=== PATIENT | male | born 1945 | race Caucasian/White ===

== ENCOUNTER 2017-10-31 12:46 | Emergency (ER) | payer OTHER ==
[~2017-10-31] VITALS: Ht 177.8 cm; Wt 131.5 kg
--- NOTE | 2017-10-31 15:22 | RADIOLOGY REPORT ---
EXAMINATION: CHEST 1 VIEW CLINICAL INFORMATION: Dizziness. Orthostatic hypotension. COMPARISON: None. TECHNIQUE: An AP view of the chest is provided. The view obtained contains only the upper two thirds of the thorax. FINDINGS: The cardiac silhouette is not enlarged. The mediastinal and hilar contours are unremarkable. There are neither pleural effusions nor pneumothoraces. There are no consolidations. The osseous structures are unremarkable. IMPRESSION: Limited examination as stated above. No acute airspace disease demonstrated within the visualized portions of the lungs.
[2017-10-31 15:32] LABS: ABSOLUTE BASOPHIL COUNT 0 /CUMM (0.0-0.2); ABSOLUTE EOSINOPHIL COUNT 0.3 /CUMM (0.0-0.7); ABSOLUTE GRANULOCYTE CT 9.1 /CUMM (1.4-6.5); ABSOLUTE LYMPH COUNT 2.2 /CUMM (1.2-3.4); ABSOLUTE MONOCYTE COUNT 0.6 /CUMM (0.10-0.60); BASOPHIL % 0.2 % (0.0-2.0); EOSINOPHIL % 2.3 % (0-5); GRANULOCYTE % 74.7 % (42.2-75.2); HEMATOCRIT 48.3 % (42-52); MEAN CORPUSCULAR HGB 28.8 PG (27.0-31.0); PLATELET COUNT 296 /CUMM (130-400); RBC DISTRIBUTION WIDTH 14.2 % (11.5-14.5); RED BLOOD CELL CT 5.56 /CUMM (4.70-6.10); WHITE BLOOD CELL COUNT 12.1 /CUMM (4.8-10.8)
[2017-10-31] MEDS ORDERED: LOSARTAN POTASS50 M1 PO (15:32)
[2017-10-31] MEDS ORDERED: PIOGLITAZONE HC15 MG PO (15:32)
[2017-10-31] MEDS ORDERED: BISOPROLOL-HCT1 EAC1 PO (15:32)
[2017-10-31] MEDS ORDERED: TOPIRAMATE50 M1 PO (15:33)
[2017-10-31] MEDS ORDERED: ATORVASTATIN CA40 M1 PO (15:33)
[2017-10-31] MEDS ORDERED: METFORMIN HCL500 M4 PO (15:34)
[2017-10-31] MEDS ORDERED: FINASTERIDE5 M1 PO (15:34)
[2017-10-31] MEDS ORDERED: PAROXETINE HCL20 M1 PO (15:34)
--- NOTE | 2017-10-31 15:56 | ED GENERAL ADULT ---
History of Present Illness General Chief Complaint: General Adult Stated Complaint: FREQUENT URINATION/DIZZY Source: patient Exam Limitations: no limitations Vital Signs & Intake/Output Vital Signs & Intake/Output Vital Signs Date Time Temp Pulse Resp B/P B/P Pulse O2 O2 Flow FiO2 Mean Ox Delivery Rate 10/31 1501 56 130/78 10/31 1304 98.7 64 18 137/82 96 Room Air Allergies Coded Allergies: NO KNOWN ALLERGIES (06/12/13) Reconcile Medications Atorvastatin Calcium 40 MG TABLET 1 TAB PO DAILY CHOLESTEROL (Reported) Bisoprolol Fumarate/Hctz (Bisoprolol-Hctz 5-6.25 MG Tab) 5 MG-6.25 MG TABLET 1 TAB PO DAILY HEART (Reported) Finasteride 5 MG TABLET 1 TAB PO DAILY BPH (Reported) Losartan Potassium 50 MG TABLET 1 TAB PO DAILY HEART (Reported) Metformin HCl (Metformin HCl ER) 500 MG TAB.ER.24H 1 TAB PO BID DIABETES ( Reported) Paroxetine HCl 20 MG TABLET 1 TAB PO DAILY MENTAL HEALTH (Reported) Pioglitazone HCl 15 MG TABLET 1 TAB PO DAILY DIABETES (Reported) Topiramate 50 MG TABLET 1 TAB PO BID UNKNOWN (Reported) Triage Note: PT C/O FEELING DIZZY LAST EVENING AND IT CONT. THROUGHT THE EVENING. PT ALSO STATES HE IS HAVING FREQUENT URINATION. PT STATES HE WAS SO DIZZY THIS AM THAT HE ALMOST FELL GETTING READY TO COME TO ED. Triage Nurses Notes Reviewed? yes HPI: Patient is a 71-year-old male with past medical history as outlined below who presents today for near syncope. His symptoms appear to be almost exclusively orthostatic, come in immediately after standing from a supine position. This has been acute over the past 24 hours. He does not note any known inciting episodes or causative factors. He has not been feeling ill recently, and upon my initial encounter while lying supine the patient is well-appearing and in no acute distress, asymptomatic. Past History Travel History Traveled to [place] past 21 day No Medical History Any Pertinent Medical History? none Cardiovascular: hypertension, hyperlipidemia Endocrine: diabetes History of MRSA: No History of VRE: No History of CDIFF: No Influenza Vaccine: 02/27/13 Surgical History Surgical History: non-contributory Psychosocial History Who do you live with Spouse Services at Home None What is your primary language Tristanian Tobacco Use: Quit >30 days ago ETOH Use: denies use Illicit Drug Use: denies illicit drug use Family History Family History, If Any: FATHER Relation not specified for: CHF (congestive heart failure) Diabetes mellitus (DM) Hx Contributory? Yes Review of Systems Review of Systems Constitutional: Reports: see HPI. EENTM: Reports: no symptoms. Respiratory: Reports: no symptoms. Cardiovascular: Reports: see HPI, palpitations. Denies: chest pain, edema. GI: Reports: no symptoms. Genitourinary: Reports: no symptoms. Musculoskeletal: Reports: no symptoms. Skin: Reports: no symptoms. Neurological/Psychological: Reports: no symptoms. Hematologic/Endocrine: Reports: no symptoms. Immunologic/Allergic: Reports: no symptoms. All Other Systems: Reviewed and Negative Physical Exam Physical Exam General Appearance: no apparent distress, alert, awake Comments: HEENT: Inspection of the head reveals a normocephalic cranium with no signs of trauma. Ophtho: Extraocular muscles are intact and pupils are equal and reactive to light bilaterally with no afferent pupillary defect. The sclera are noninjected , and there is no obvious discharge. Neck: The trachea is midline, there is no obvious asymmetry or mass over the thyroid, and there is no midline cervical spine tenderness Respiratory: The lungs are clear and equal to auscultation bilaterally without wheezes, rales, or rhonchi. The patient exhibits no signs of labored breathing. Cardiac: Regular rhythm and non-tachycardic without appreciable murmurs on auscultation. No obvious JVD. GI: Examination of the abdomen reveals no significant focal tenderness in any of the four quadrants. There is negative Middleton's sign, negative McBurney's point tenderness, negative [place] sign, negative Ford-Chamorro sign, and no signs of peritonitis whatsoever on percussion or deep palpation. The skin is intact with no sign of trauma or infection. : Deferred Neuro: The patient is oriented to person, place, time, and situation, with no obvious focal motor deficits. There were no sensory deficits, and the patient exhibit purposeful movement of all 4 extremities. Cranial nerves II through XII are intact, and gait is normal. Behavioral: Calm and cooperative Dermatologic: Dermatologic examination reveals no diffuse rashes or exanthems, no petechiae, no ecchymoses, and no other signs of erythema or infection. Core Measures ACS in differential dx? Yes CVA/TIA Diagnosis: No Sepsis Present: No Sepsis Focused Exam Completed? No Progress Differential Diagnoses I considered the following diagnoses in my evaluation of the patient: Cardiogenic syncopal, dysrhythmia, neurogenic significant, orthostatic hypotension, vasovagal syncope, electrolyte abnormality, hypotension, among multiple other possibilities Plan of Care: Orders Procedure Date/time Status URINALYSIS 11/01 1451 Complete COMPREHENSIVE METABOLIC PANEL 11/01 1451 Complete CBC WITHOUT DIFFERENTIAL 11/01 1451 Complete EKG 11/01 1451 Active Laboratory Tests 10/31/17 1556: Anion Gap 11, Estimated GFR > 60, BUN/Creatinine Ratio 18.0, Glucose 119 H, Calcium 8.9, Total Bilirubin 0.4, AST 12 L, ALT 27, Alkaline Phosphatase 82, Total Protein 6.4, Albumin 3.4 L, Globulin 3.0, Albumin/Globulin Ratio 1.1 10/31/17 1525: CBC w Diff NO MAN DIFF REQ, RBC 5.56, MCV 87.0, MCH 28.8, MCHC 33.0, RDW 14.2, MPV 9.0, Gran % 74.7, Lymphocytes % 17.9 L, Monocytes % 4.9, Eosinophils % 2.3, Basophils % 0.2, Absolute Granulocytes 9.1 H, Absolute Lymphocytes 2.2, Absolute Monocytes 0.6, Absolute Eosinophils 0.3, Absolute Basophils 0 10/31/17 1514: Urine Color YEL, Urine Clarity CLEAR, Urine pH 7.0, Ur Specific [place] 1.015, Urine Protein NEG, Urine Ketones NEG, Urine Nitrite NEG, Urine Bilirubin NEG, Urine Urobilinogen 0.2, Ur Leukocyte Esterase NEG, Ur Microscopic EXAM NOT REQUIRED, Urine Hemoglobin NEG, Urine Glucose NEG CXR Impression: no acute abnormality Initial ED EKG: ECG performed at 1528, read by me at 1530, normal sinus rhythm with a rate of 58, normal axis, HI/QRS/QTc intervals normal. Nonspecific ST segment abnormalities which are unchanged from prior study, no ST segment elevations, normal T waves. No STEMI. Compared to prior on 11/12/2013, no significant interval change or sign of Brugada syndrome. Comments: Patient presented today for near-syncope. It was unclear whether the etiology was neurogenic, cardiogenic, orthostatic, or hypovolemic. The symptoms were exclusively after standing up at home, but here he was asymptomatic even during orthostatic testing. Orthostatic vital signs were also normal. Laboratory studies, urinalysis, ECG, and chest x-ray were unremarkable. I offered hospitalization for cardiac observation and further workup, but he declined, stating that he would prefer to return home. He does have significant sinus issues which he asked me about; the possibility of viral labyrinthitis as an extension from viral sinusitis does exist so I have referred him to ENT. Also, I have recommended he follow up with a rag washer as referred, for further workup of his near-syncope. The patient understands, and he also understands the possible complications with continuing his workup in the outpatient setting should this prove to be a cardiogenic etiology, up to and including sudden cardiac . Ultimately, the patient was discharged home in stable condition. Departure Departure Time of Disposition: 1713 Disposition: HOME OR SELF CARE Condition: Stable Clinical Impression Primary Impression: Near syncope Referrals: Max Green MD (PCP/Family) Additional Instructions: Your blood work and urine testing was normal in the ER today. Please keep hydrated and follow up with your primary physician this week for reassessment. We also recommend that you call the attached numbers for office evaluation by ENT to evaluate your sinuses and by cardiology for your dizziness and feeling of almost passing out. As always, if you experience any new or worsening symptoms, please return to the emergency department immediately. Departure Forms: Customer Survey General Discharge Information Critical Care Note Critical Care Note Critical Care Time: non-applicable
[2017-10-31 17:47] VITALS: BP 144/91
== END 2017-10-31 17:49 ==
LOC: ERH 12:46
PROVIDERS: Student in an Organized Health Care Education/Training Program
DX: R55 Syncope and collapse (principal); R35.0 Frequency of micturition; I10 Essential (primary) hypertension; Z87.891 Personal history of nicotine dependence
CPT/HCPCS: 71045; 81003; 93005; 93010